=== PATIENT | female | born 1945 | race Two or more races ===

== ENCOUNTER 2016-07-28 14:23 | Emergency (ER) | payer MEDICARE, OTHER ==
[~2016-07-28] VITALS: Ht 167.6 cm; Wt 63.5 kg
[~2016-07-28 14:23] MED LIST: ACETAMINOP500 MG/51 ORAL; ALEVE220 M2 PO; AMBIEN5 MG ORAL; AMOXIL250 MG PO; B COMPLEX1 EACH ORAL; CATAPRES0.1 MG ORAL; CELEXA20 MG PO; CEPHALEXIN500 MG ORAL; CIPROFLOXACIN500 M2 ORAL; CITALOPRAM HBR10 M1 ORAL; CLOBETASOL PROP50 G1 TP; CLONIDINE0.1 MG GT; COLACE100 MG ORAL; DEXILANT60 MG ORAL; DOCUSATE SODIU100 MG ORAL; ENALAPRIL MALE2.5 MG ORAL; EVISTA60 MG ORAL; FIBER1 GM PO; KENALOG 0.025%15 GM APPLIC; KENALOG 0.1% CR15 GM APPLIC; LIDEX15 GM TOPIC; MAGNESIUM250 M3 PO; METRONIDAZOLE500 MG ORAL; NASONEX17 GM NASAL; NEXIUM40 MG ORAL; NORCO 5-325 TA1 EACH ORAL; OYSTER SHELL C500 MG PO; PATANASE30.5 GM NS; PROTONIX40 MG ORAL; TACROLIMUS30 G1 TP; TYLENOL EXTRA500 MG ORAL; UNOBMED; VITAMIN C500 M1 ORAL; VITAMIN E400 UNI5 PO; ZOLPIDEM TARTRAT5 MG ORAL; ZYPREXA2.5 MG ORAL; ZYRTEC10 MG ORAL
[2016-07-28 14:49] VITALS: BP 125/79
[2016-07-28] MEDS ORDERED: AMOXICILLIN500 MG ORAL (15:45)
--- NOTE | 2016-07-28 16:01 | Emergency Room Report ---
History of Present Illness General Chief Complaint: General Complaint Source: Patient Present Illness HPI The patient is a 71 -year-old female with a history of tonsillectomy presenting for sore throat and dry cough which has been present for the past month. The patient states that she was treated with azithromycin which has not helped. The patient spoke with her primary care physician who told her to come to the emergency department for throat culture and treatment. The pain is described as a 5/10 burning sensation and worse with swallowing. Pt denies fever but has been using tylenol. Pt denies N, V, VELARDE, fatigue, ear pain, rash, recent travel, sick contacts, SOB, CP Allergies: Coded Allergies: EPINEPHRINE (Verified Allergy, Severe, 02/12/14) DIFFICULTY BREATHING PSEUDOEPHEDRINE (Verified Allergy, Severe, 02/12/14) FACIAL SWELLING Shrimp (Verified Allergy, Severe, 12/11/13) Facial edema FLUTICASONE (Verified Allergy, Intermediate, 02/12/14) BURNING SENSATION INSIDE NOSE CETIRIZINE (Unverified Allergy, Unknown, 01/27/15) vpmtting dizzines IBUPROFEN (Verified Allergy, Unknown, 12/11/13) ALENDRONATE SODIUM (Verified Adverse Reaction, Severe, 02/12/14) SEVERE VOMITING ENALAPRIL (Verified Adverse Reaction, Intermediate, ANGIOEDEMA, 12/12/13) PERIORBITAL ASPIRIN (Verified Adverse Reaction, Mild, 02/12/14) UPSET STOMACH,MILD VOMITING CLINDAMYCIN (Verified Adverse Reaction, Mild, 02/12/14) UPSET STOMACH DULOXETINE (Verified Adverse Reaction, Mild, 02/12/14) MILD VOMITING Uncoded Allergies: CORTISONE/STEROIDS (Allergy, Severe, 02/12/14) SKIN RASH MICROCRYSTALLINE PROCESS (Allergy, Severe, 02/12/14) SKIN RASH HYDROCODON (Adverse Reaction, Severe, 02/12/14) SEVERE CONSTIPATION Patient History Past Medical History: see triage record Pertinent Family History: none Reviewed Nursing Documentation: PMH: Agreed, PSxH: Agreed Nursing Documentation-PMH Past Medical History: No History, Except For Hx Cardiac Problems: Yes Hx Hypertension: Yes Hx Cancer: No Hx Gastrointestinal Problems: Yes Hx Neurological Problems: No Review of Systems All Other Systems: negative except mentioned in HPI Physical Exam Vital Signs Date Time Temp Pulse Resp B/P Pulse Ox O2 Delivery O2 Flow Rate FiO2 07/28/16 14:33 98.4 72 16 125/79 97 Room Air Sp02 EP Interpretation: reviewed, normal General Appearance: no apparent distress, alert, GCS 15, non-toxic Head: normocephalic, atraumatic Eyes: bilateral eye PERRL, bilateral eye normal inspection ENT: hearing grossly normal, normal pharynx, no angioedema, normal voice, TMs + canals normal, uvula midline, pharyngeal erythema Neck: full range of motion, supple, supple/symm/no masses Respiratory: chest non-tender, lungs clear, normal breath sounds, no wheezing, speaking full sentences Cardiovascular #1: regular rate, rhythm, no edema Cardiovascular #2: 2+ carotid (R), 2+ carotid (L), 2+ radial (R), 2+ radial (L) , 2+ dorsalis pedis (R), 2+ dorsalis pedis (L) Gastrointestinal: normal bowel sounds, non tender, soft, non-distended, no guarding, no rebound Rectal: deferred Genitourinary: normal inspection, no CVA tenderness Musculoskeletal: back normal, gait/station normal, normal range of motion, non- tender Neurologic: alert, oriented x3, responsive, motor strength/tone normal, sensory intact, speech normal Psychiatric: judgement/insight normal, memory normal, mood/affect normal, no suicidal/homicidal ideation Reflexes: 3+ bicep (R), 3+ bicep (L), 3+ tricep (R), 3+ tricep (L), 3+ knee (R) , 3+ knee (L) Skin: normal color, no rash, warm/dry, well hydrated Lymphatic: no adenopathy Medical Decision Making PA Attestation Dr. Cline is my supervising physician. Patient management was discussed with my supervising physician Diagnostic Impression: Primary Impression: Pharyngitis, acute ER Course The patient is a 71 -year-old female with a history of tonsillectomy presenting for sore throat and dry cough which has been present for the past month. Differential diagnosis include but not limited to pharyngitis, sinusitis, pneumonia, rhinitis PE: Afebrile. NAD. HEENT: + oropharyngeal erythema. Tonsils removed. Otherwise exam unremarkable. Throat culture taken. The pt will be started on amoxicillin and will FU with PMD. The treatment will be altered depending on throat culture results. ER precautions given Last Vital Signs Date Time Temp Pulse Resp B/P Pulse Ox O2 Delivery O2 Flow Rate FiO2 07/28/16 14:49 98.4 78 16 125/79 97 Room Air Status: improved Disposition: HOME, SELF-CARE Condition: Improved Scripts Amoxicillin* (AMOXIL*) 500 Mg Capsule 500 MG ORAL Q12HR, #20 CAP Prov: HARIKA JONSE 07/28/16 Patient Instructions: Sore Throat Additional Instructions: I discussed my findings with the patient. All questions and concerns have been answered. Treatment and medication compliance have been addressed. I advised the patient that they need to follow up with PMD in 3-5 days. Return to ED if pain remains or worsens, cough worsens or remains, you notice blood in your sputum, you notice wheezing, you experience a fever, or if needed for any reason. Patient verbalized understanding of discharge instructions. HARIKA JONES Jul 28, 2016 16:00
[2016-07-28 16:04] VITALS: BP 125/79
[2016-08-23] MEDS ORDERED: MAPAP650 MG/20. PO (16:14)
[2016-08-23] MEDS ORDERED: LOSARTAN POTASS50 MG ORAL (16:14)
[2016-08-23] MEDS ORDERED: AIRBORNE EFFER1 EACH PO (16:14)
[2016-08-23] MEDS ORDERED: [UNRECOGNIZED DRUG - OTHER] (16:14)
[2016-08-23] MEDS ORDERED: [UNRECOGNIZED DRUG - OTHER] (16:14)
[2016-08-23] MEDS ORDERED: AZELASTINE137 MCG/0. NS (16:14)
[2016-08-23] MEDS ORDERED: VITAMIN D250000 UNI1 ORAL (16:14)
[2016-08-23] MEDS ORDERED: PETROLEUM JELL368 GM TP (16:14)
[2016-08-23] MEDS ORDERED: AMLODIPINE BESYL5 MG ORAL (16:14)
[2016-08-23] MEDS ORDERED: ZOLPIDEM TARTRAT5 MG ORAL (16:14)
== END 2016-07-28 16:04 | disposition home or self-care (01) ==
LOC: EMR 15:05
DX: J02.9 Acute pharyngitis, unspecified (principal); I10 Essential (primary) hypertension; Z88.6 Allergy status to analgesic agent; Z88.1 Allergy status to other antibiotic agents; Z88.8 Allergy status to other drugs, medicaments and biological substances; Z91.013 Allergy to seafood
CPT/HCPCS: 99283

== ENCOUNTER → 2016-08-23 | Outpatient (CLI) | payer MEDICARE, OTHER ==
[~2016-08-23] MED LIST changes: +AIRBORNE EFFER1 EACH PO; +AMLODIPINE BESYL5 MG ORAL; +AMOXICILLIN500 MG ORAL; +AZELASTINE137 MCG/0. NS; +LOSARTAN POTASS50 MG ORAL; +MAPAP650 MG/20. PO; +PETROLEUM JELL368 GM TP; +VITAMIN D250000 UNI1 ORAL; +[UNRECOGNIZED DRUG - OTHER]; +[UNRECOGNIZED DRUG - OTHER]
[2016-08-23 14:38] VITALS: BP 116/61
--- NOTE | 2016-08-23 14:57 | GI Progress Note ---
Assessment/Plan Problems: (1) Encounter for diagnostic endoscopy ICD Codes: Z01.818 - Encounter for other preprocedural examination SNOMED: 988486583, 260951255 (2) Barretts esophagus ICD Codes: K22.70 - Barretts esophagus SNOMED: 707194701 (3) Hiatal hernia ICD Codes: K44.9 - Hiatal hernia SNOMED: 56528671 (4) Gastritis ICD Codes: K29.70 - Gastritis SNOMED: 5578170 (5) Abdominal pain ICD Codes: R10.9 - Unspecified abdominal pain SNOMED: 79968394 Status: stable Status Narrative Discussed with Dr. Rosario. Assessment/Plan EGD scheduled for 09/26/16 to evaluate Anand's - NPO @ [place] prior day procedure acknowledged by patient possible candidate for ablation dc nexium 40mg Subjective Gastrointestinal/Abdominal: Reports: no symptoms Subjective denies use of any blood thinners no longer takes nexium 40 Objective Last 24 Hour Vital Signs Date Time Temp Pulse Resp B/P Pulse Ox O2 Delivery O2 Flow Rate FiO2 08/23/16 14:38 98.1 80 16 116/61 97 General Appearance: no apparent distress, alert Cardiovascular: normal rate Respiratory/Chest: normal breath sounds, no respiratory distress Abdominal Exam: normal bowel sounds, non tender, soft Extremities: normal range of motion Objective Endoscopy Procedure Note Indication for Procedure: barretts esophagus Procedures Performed: EGD Operative Findings/Diagnosis: gastritis DONOVAN ROSARIO - Jan 28, 2015 11:02 Tawana Kaiser N.P. Aug 23, 2016 14:57
== END | disposition home or self-care (01) ==
LOC: PAN 14:27
DX: Z01.818 Encounter for other preprocedural examination (principal); K22.70 Barrett's esophagus without dysplasia; K44.9 Diaphragmatic hernia without obstruction or gangrene; K29.70 Gastritis, unspecified, without bleeding; R10.9 Unspecified abdominal pain
CPT/HCPCS: 99211

== ENCOUNTER 2017-04-15 13:45 | Outpatient (CLI) | payer MEDICARE, OTHER ==
[2017-04-15] MEDS ORDERED: CITRACAL + D E1 EACH PO (15:10)
[2017-04-15] MEDS ORDERED: CELEXA20 MG ORAL (15:10)
[2017-04-15] MEDS ORDERED: VENTOLIN HFA18 GM INH (15:10)
[2017-04-15] MEDS ORDERED: PROAIR HFA8.5 GM INH (15:10)
[2017-04-15] MEDS ORDERED: PSEUDOEPHEDRINE30 MG PO (15:10)
[2017-04-15] MEDS ORDERED: FLUTICASONE PRO16 G1 NASAL (15:10)
[2017-04-15] MEDS ORDERED: CULTURELLE1 EACH ORAL (15:10)
[2017-04-15] MEDS ORDERED: ALLEGRA ALLERG180 M1 PO (15:10)
[2017-04-15] MEDS ORDERED: MUCINEX COLD-F177 M1 PO (15:10)
[2017-04-15 15:27] VITALS: BP 146/74
[2017-04-15 15:56] LABS: BASOPHILS % (AUTO) 0.8 % (0.0-2.0); EOSINOPHILS % (AUTO) 1.4 % (0.0-3.0); LYMPHOCYTES % (AUTO) 19.4 % (20.0-45.0); MEAN CORPUSCULAR HEMOGLOBIN 32.1 PG (27.0-31.0); MEAN CORPUSCULAR HGB CONC 32.8 G/DL (32.0-36.0); MEAN CORPUSCULAR VOLUME 98 FL (80-99); MEAN PLATELET VOLUME 6.7 FL (6.5-10.1); MONOCYTES % (AUTO) 8.3 % (1.0-10.0); NEUTROPHILS % (AUTO) 70.1 % (45.0-75.0); PLATELET COUNT 282 K/UL (150-450); RED BLOOD COUNT 4.17 M/UL (4.20-5.40); RED CELL DISTRIBUTION WIDTH 12.2 % (11.6-14.8); WHITE BLOOD COUNT 7.5 K/UL (4.8-10.8)
[2017-04-15 15:58] LABS: APPEARANCE,URINE CLEAR; KETONES,URINE 1+ (NEGATIVE); LEUKOCYTE ESTERASE ,URINE 1+ (NEGATIVE); NITRITE,URINE NEGATIVE (NEGATIVE); PH,URINE 5 (4.5-8.0); PROTEIN,URINE NEGATIVE (NEGATIVE); UROBILINOGEN,URINE NORMAL MG/DL (0.0-1.0)
[2017-04-15 16:07] LABS: BACTERIA,URINE FEW /HPF; SQUAMOUS EPITHELIAL CELL,UR FEW /LPF (NONE/OCC)
--- NOTE | 2017-04-15 16:11 | GI Progress Note ---
Assessment/Plan Problems: (1) Constipation ICD Codes: K59.00 - Constipation, unspecified SNOMED: 47922807 (2) Diarrhea ICD Codes: R19.7 - Diarrhea, unspecified SNOMED: 48067939 (3) Barretts esophagus ICD Codes: K22.70 - Barretts esophagus SNOMED: 939349487 (4) Abdominal pain ICD Codes: R10.9 - Unspecified abdominal pain SNOMED: 94009324 (5) Hiatal hernia ICD Codes: K44.9 - Hiatal hernia SNOMED: 26597439 (6) Smoker ICD Codes: F17.200 - Smoker SNOMED: 37428928 Status: stable Status Narrative Seen with Dr. Rosario. Assessment/Plan labs drawn today >> CBC, CMP, Mg, Phos, HgA1C UA obtained cdiff, stool culture to be returned by patient Imodium prn RTC after studies Subjective Subjective abdominal pain constipation vs diarrhea last 2 weeks >> tokk Imodium, pepto Bismol which caused her to become constipated abdominal bloating smokes on and off Has Anand here for follow up Objective Last 24 Hour Vital Signs Date Time Temp Pulse Resp B/P (MAP) Pulse Ox O2 Delivery O2 Flow Rate FiO2 04/15/17 15:27 98.0 66 16 146/74 Laboratory Tests Test 04/15/17 14:45 White Blood Count 7.5 K/UL (4.8-10.8) Red Blood Count 4.17 M/UL (4.20-5.40) L Hemoglobin 13.4 G/DL (12.0-16.0) Hematocrit 40.8 % (37.0-47.0) Mean Corpuscular Volume 98 FL (80-99) Mean Corpuscular Hemoglobin 32.1 PG (27.0-31.0) H Mean Corpuscular Hemoglobin Concent 32.8 G/DL (32.0-36.0) Red Cell Distribution Width 12.2 % (11.6-14.8) Platelet Count 282 K/UL (150-450) Mean Platelet Volume 6.7 FL (6.5-10.1) Neutrophils (%) (Auto) 70.1 % (45.0-75.0) Lymphocytes (%) (Auto) 19.4 % (20.0-45.0) L Monocytes (%) (Auto) 8.3 % (1.0-10.0) Eosinophils (%) (Auto) 1.4 % (0.0-3.0) Basophils (%) (Auto) 0.8 % (0.0-2.0) Urine Color Yellow Urine Appearance Clear Urine pH 5 (4.5-8.0) Urine Specific [place] 1.015 (1.005-1.035) Urine Protein Negative (NEGATIVE) Urine Glucose (UA) Negative (NEGATIVE) Urine Ketones 1+ (NEGATIVE) H Urine Occult Blood 2+ (NEGATIVE) H Urine Nitrite Negative (NEGATIVE) Urine Bilirubin Negative (NEGATIVE) Urine Urobilinogen Normal MG/DL (0.0-1.0) Urine Leukocyte Esterase 1+ (NEGATIVE) H Urine RBC 5-10 /HPF (0 - 2) H Urine WBC 2-4 /HPF (0 - 2) Urine Squamous Epithelial Cells Few /LPF (NONE/OCC) Urine Bacteria Few /HPF (NONE) Sodium Level Pending Potassium Level Pending Chloride Level Pending Carbon Dioxide Level Pending Blood Urea Nitrogen Pending Creatinine Pending Estimat Glomerular Filtration Rate Pending Glucose Level Pending Hemoglobin A1c Pending Calcium Level Pending Phosphorus Level Pending Magnesium Level Pending Total Bilirubin Pending Aspartate Amino Transf (AST/SGOT) Pending Alanine Aminotransferase (ALT/SGPT) Pending Alkaline Phosphatase Pending Total Protein Pending Albumin Pending Globulin Pending General Appearance: no apparent distress, alert Cardiovascular: normal rate Respiratory/Chest: normal breath sounds, no respiratory distress Abdominal Exam: normal bowel sounds, non tender, soft Genitourinary/Rectal: normal rectal exam Extremities: normal range of motion, non-tender, normal inspection Tawana Kaiser N.P. Apr 15, 2017 16:11
[2017-04-15 16:47] LABS: ALANINE AMINOTRANSFERASE 56 U/L (3-33); ALBUMIN/GLOBULIN RATIO 1.8 (1.0-2.7); ANION GAP 14 (5-15); ASPARTATE AMINO TRANSFERASE 58 U/L (5-40); CALCIUM 8.8 mg/dL (8.6-10.2); CARBON DIOXIDE 25 mEQ/L (20-30); CHLORIDE 103 mEQ/L (98-107); CREATININE 0.7 mg/dL (0.5-0.9); HEMOGLOBIN A1C 5.5 % (< 6.0); HEMOLYSIS 6; MAGNESIUM 2.1 mg/dL (1.7-2.5); PHOSPHORUS 3.1 mg/dL (2.5-4.8); POTASSIUM 3.5 mEQ/L (3.4-4.9); SODIUM 142 mEQ/L (135-145)
[2017-04-15 17:00] LABS: BILIRUBIN,DIRECT 0.2 mg/dL (0.1-0.3)
[2017-04-16] MEDS ORDERED: ACETAMINOPHEN325 M1 ORAL (23:22)
== END 2017-04-15 15:00 | disposition home or self-care (01) ==
LOC: PAN 13:45
DX: K59.00 Constipation, unspecified (principal); R19.7 Diarrhea, unspecified; K22.70 Barrett's esophagus without dysplasia; R10.9 Unspecified abdominal pain; K44.9 Diaphragmatic hernia without obstruction or gangrene; F17.200 Nicotine dependence, unspecified, uncomplicated
CPT/HCPCS: 36415; 80053; 81003; 82248; 83036; 83735; 84100; 85025; G0463; 99211

== ENCOUNTER 2017-04-16 13:47 | Outpatient (CLI) | payer MEDICARE, OTHER ==
[~2017-04-16 13:47] MED LIST changes: +ALLEGRA ALLERG180 M1 PO; +CELEXA20 MG ORAL; +CITRACAL + D E1 EACH PO; +CULTURELLE1 EACH ORAL; +FLUTICASONE PRO16 G1 NASAL; +MUCINEX COLD-F177 M1 PO; +PROAIR HFA8.5 GM INH; +PSEUDOEPHEDRINE30 MG PO; +VENTOLIN HFA18 GM INH
[2017-04-16] MEDS ORDERED: ACETAMINOPHEN325 M1 ORAL (23:22)
== END 2017-04-16 14:00 | disposition home or self-care (01) ==
LOC: PAN 13:47
DX: R10.9 Unspecified abdominal pain (principal); R19.7 Diarrhea, unspecified
CPT/HCPCS: 87045; 87324

== ENCOUNTER 2017-04-16 20:32 | Emergency (ER) | payer MEDICARE, OTHER ==
[~2017-04-16] VITALS: Ht 167.6 cm; Wt 71.2 kg
--- NOTE | 2017-04-16 21:54 | Emergency Room Report ---
History of Present Illness General Chief Complaint: Abdominal Pain Source: Patient Present Illness HPI Is a 72-year-old female with a history of gallbladder disease. She had a cholecystectomy 2 years ago. She is uncertain complaint abdominal pain. Is on and off for a month. Worse the last couple days. She saw Dr. Renee today and he recommended that the ER. Pain is left upper quadrant.) Her back. No rash. Pain is 8/10. Worse with palpation. No nausea no vomiting. Has diarrhea. No fever. No urinary complaint. Allergies: Coded Allergies: EPINEPHRINE (Verified Allergy, Severe, 02/12/14) DIFFICULTY BREATHING Shrimp (Verified Allergy, Severe, 12/11/13) Facial edema FLUTICASONE (Verified Allergy, Intermediate, 02/12/14) BURNING SENSATION INSIDE NOSE CETIRIZINE (Unverified Allergy, Unknown, 01/27/15) vpmtting dizzines IBUPROFEN (Verified Allergy, Unknown, 12/11/13) ALENDRONATE SODIUM (Verified Adverse Reaction, Severe, 02/12/14) SEVERE VOMITING ENALAPRIL (Verified Adverse Reaction, Intermediate, ANGIOEDEMA, 12/12/13) PERIORBITAL ASPIRIN (Verified Adverse Reaction, Mild, 02/12/14) UPSET STOMACH,MILD VOMITING CLINDAMYCIN (Verified Adverse Reaction, Mild, 02/12/14) UPSET STOMACH DULOXETINE (Verified Adverse Reaction, Mild, 02/12/14) MILD VOMITING Uncoded Allergies: CORTISONE/STEROIDS (Allergy, Severe, 02/12/14) SKIN RASH MICROCRYSTALLINE PROCESS (Allergy, Severe, 02/12/14) SKIN RASH HYDROCODON (Adverse Reaction, Severe, 02/12/14) SEVERE CONSTIPATION Patient History Past Medical History: see triage record, old chart reviewed Past Surgical History: eliecer Pertinent Family History: none Social History: Denies: smoking Now: No Immunizations: other Reviewed Nursing Documentation: PMH: Agreed, PSxH: Agreed Nursing Documentation-PMH Hx Cardiac Problems: No Hx Hypertension: Yes Hx Cancer: No Hx Gastrointestinal Problems: Yes Hx Neurological Problems: No Review of Systems Eye: Denies: eye pain, blurred vision ENT: Denies: ear pain, nose congestion, throat swelling Respiratory: Denies: cough, shortness of breath Cardiovascular: Denies: chest pain, palpitations Gastrointestinal: Reports: abdominal pain, Denies: diarrhea, nausea, vomiting Musculoskeletal: Denies: back pain, joint pain Skin: Denies: rash Neurological: Denies: headache, numbness Endocrine: Denies: increased thirst, increased urine Hematologic/Lymphatic: Denies: easy bruising All Other Systems: negative except mentioned in HPI Physical Exam Vital Signs Date Time Temp Pulse Resp B/P (MAP) Pulse Ox O2 Delivery O2 Flow Rate FiO2 04/16/17 20:57 98.1 68 20 147/75 97 Room Air vitals normal Sp02 EP Interpretation: reviewed, normal General Appearance: well appearing, no apparent distress, alert Head: normocephalic, atraumatic Eyes: bilateral eye PERRL, bilateral eye EOMI ENT: hearing grossly normal, normal pharynx Neck: full range of motion, supple, no meningismus Respiratory: chest non-tender, lungs clear, normal breath sounds Cardiovascular #1: regular rate, rhythm, no murmur Gastrointestinal: normal bowel sounds, no mass, no organomegaly, no bruit, non- distended, tenderness - Left upper quadrant Musculoskeletal: back normal, gait/station normal, normal range of motion Psychiatric: mood/affect normal Skin: warm/dry Medical Decision Making Diagnostic Impression: Primary Impression: Abdominal pain of unknown etiology Additional Impression: Enteritis ER Course Present with abdominal pain and CT scan significant for gastroenteritis. No evidence of obstruction. No evidence of surgical abdomen. We'll discharge home. Lab Results Impression labs unremarkable CT/MRI/US Diagnostic Results CT/MRI/US Diagnostic Results : Imaging Test Ordered: CT abdomen and pelvis Impression read by radiologist. Fluid in nondistended loops of small bowel Last Vital Signs Date Time Temp Pulse Resp B/P (MAP) Pulse Ox O2 Delivery O2 Flow Rate FiO2 04/16/17 20:57 98.1 68 20 147/75 97 Room Air Status: improved Disposition: HOME, SELF-CARE Condition: Stable Scripts Acetaminophen* (ACETAMINOPHEN 325MG TABLET*) 325 Mg Tablet 325 MG ORAL Q6H Y for For Pain, #30 TAB Prov: ROSELINE FERRELL M.D. 04/16/17 Patient Instructions: Viral Gastroenteritis, Adult Additional Instructions: Followup with your DrNavi in 2-3 days. Return worse. ROSELINE FERRELL M.D. Apr 16, 2017 21:54
[2017-04-16 22:54] LABS: APPEARANCE,URINE CLEAR; KETONES,URINE NEGATIVE (NEGATIVE); LEUKOCYTE ESTERASE ,URINE 1+ (NEGATIVE); NITRITE,URINE NEGATIVE (NEGATIVE); PH,URINE 6.5 (4.5-8.0); PROTEIN,URINE NEGATIVE (NEGATIVE); UROBILINOGEN,URINE NORMAL MG/DL (0.0-1.0)
[2017-04-16 22:55] LABS: EOSINOPHILS % (AUTO) 2.3 % (0.0-3.0); LYMPHOCYTES % (AUTO) 32.7 % (20.0-45.0); MEAN CORPUSCULAR HEMOGLOBIN 34.2 PG (27.0-31.0); MEAN CORPUSCULAR HGB CONC 34.9 G/DL (32.0-36.0); MEAN CORPUSCULAR VOLUME 98 FL (80-99); MEAN PLATELET VOLUME 7.1 FL (6.5-10.1); MONOCYTES % (AUTO) 12.3 % (1.0-10.0); NEUTROPHILS % (AUTO) 51.6 % (45.0-75.0); PLATELET COUNT 269 K/UL (150-450); RED BLOOD COUNT 3.78 M/UL (4.20-5.40); RED CELL DISTRIBUTION WIDTH 12.6 % (11.6-14.8); WHITE BLOOD COUNT 7.1 K/UL (4.8-10.8)
[2017-04-16 22:58] LABS: RBC,URINE 0-2 /HPF (0 - 2); SQUAMOUS EPITHELIAL CELL,UR OCCASIONAL /LPF (NONE/OCC); WBC,URINE 0-2 /HPF (0 - 2)
[2017-04-16 23:13] LABS: ALANINE AMINOTRANSFERASE 34 U/L (3-33); ALBUMIN/GLOBULIN RATIO 1.6 (1.0-2.7); ANION GAP 17 (5-15); ASPARTATE AMINO TRANSFERASE 25 U/L (5-40); CALCIUM 8.8 mg/dL (8.6-10.2); CARBON DIOXIDE 24 mEQ/L (20-30); CHLORIDE 103 mEQ/L (98-107); CREATININE 0.8 mg/dL (0.5-0.9); HEMOLYSIS 2; LIPASE 22 U/L (< 60); POTASSIUM 2.9 mEQ/L (3.4-4.9); SODIUM 144 mEQ/L (135-145)
[2017-04-16] MEDS ORDERED: ACETAMINOPHEN325 M1 ORAL (23:22)
[2017-04-16 23:28] VITALS: BP 147/75
[2017-04-16 23:28] LABS: BILIRUBIN,DIRECT 0.2 mg/dL (0.1-0.3)
--- NOTE | 2017-04-17 09:46 | Diagnostic Imaging Report ---
Indication: Abdominal pain x2 days Technique: Spiral acquisitions obtained through the abdomen and pelvis. No oral contrast utilized, per emergency room physician request No IV contrast utilized, per referring physician request.. Multiplanar reconstructions were generated. Total dose length product 759 mGycm. CTDIvol(s) 16 mGy. Dose reduction achieved using automated exposure control Comparison: 10/04/2015 Findings: The appendix is normal in caliber, contains multiple appendicoliths. There is colonic diverticulosis. No evidence of diverticulitis. No small bowel distention. There is a moderate-sized sliding-type hiatal hernia again demonstrated. Distal esophagus, stomach, duodenum are otherwise unremarkable. No free or loculated intraperitoneal air or fluid is evident. There is a small left inguinal hernia which contains only fat. Lack of IV contrast limits assessment of solid organs. The liver contains a cyst in segment 4 a. There are also multiple hepatic subcentimeter low-attenuation lesions which are too small to characterize. There are cholecystectomy clips. Mildly ectatic extrahepatic bile ducts are noted, no definite downstream obstructive lesion. The pancreas, spleen, left adrenal are unremarkable. Again demonstrated is a right adrenal mass which demonstrates fat attenuation. This measures 2.4 cm in diameter. Some scarring is seen in the upper pole cortex of the right kidney. The left kidney is unremarkable. 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 No retroperitoneal or mesenteric mass or adenopathy. No pelvic mass or adenopathy. Uterus and adnexal structures are unremarkable. The included lung bases demonstrates scarring or atelectasis bilaterally. The heart is borderline enlarged. Findings are similar to the previous study Impression: No definite acute abnormality Moderate size sliding-type hiatal hernia, also previously reported Prior cholecystectomy. Mild ectasia of the intrahepatic bile ducts, most likely related to age and postcholecystectomy state. Correlate with liver function tests Stable 2.4 cm right adrenal adenoma Right lobe liver cyst. Subcentimeter low-attenuation liver lesions, too small to characterize, most likely benign simple cysts or bile hamartomas. No further followup necessary Incidental findings as noted, including borderline cardiomegaly, basilar pulmonary parenchymal atelectasis or scarring, duplicated inferior, small fat-containing left inguinal hernia The CT scanner at [facility] is accredited by the [employer] and the scans are performed using protocols designed to limit radiation exposure to as low as reasonably achievable to attain images of sufficient resolution adequate for diagnostic evaluation.
== END 2017-04-16 23:30 | disposition home or self-care (01) ==
LOC: EMR 21:25
DX: K52.9 Noninfective gastroenteritis and colitis, unspecified (principal); I10 Essential (primary) hypertension; Z88.8 Allergy status to other drugs, medicaments and biological substances; Z88.6 Allergy status to analgesic agent; Z91.013 Allergy to seafood
CPT/HCPCS: 36415; 74176; 80053; 81003; 82248; 83690; 85025; 87086; 99284

== ENCOUNTER 2017-05-16 14:59 | Outpatient (CLI) | payer MEDICARE, OTHER ==
[~2017-05-16 14:59] MED LIST changes: +ACETAMINOPHEN325 M1 ORAL
[2017-05-16 15:00] VITALS: BP 115/57
[2017-05-16] MEDS ORDERED: OMEPRAZOLE40 M1 ORAL (16:10)
[2017-05-16] MEDS ORDERED: BISACODYL5 MG ORAL (16:10)
--- NOTE | 2017-05-16 16:10 | GI Progress Note ---
Assessment/Plan Problems: (1) Barretts esophagus ICD Codes: K22.70 - Barretts esophagus SNOMED: 138808694 (2) Abdominal pain ICD Codes: R10.9 - Unspecified abdominal pain SNOMED: 77158282 (3) Constipation ICD Codes: K59.00 - Constipation, unspecified SNOMED: 52073492 (4) Gastritis ICD Codes: K29.70 - Gastritis SNOMED: 1161118 (5) Diarrhea ICD Codes: R19.7 - Diarrhea, unspecified SNOMED: 20084026 Status: stable Status Narrative Seen with Dr. Rosario. Assessment/Plan Rx Acyclovir Rx Linzess Rx [place] RTC x 1 week Subjective Subjective GERD Constipation Diarrhea Bloating Objective T 98.5 BP 115/57 P 60 General Appearance: WD/WN, no apparent distress, alert Cardiovascular: normal rate Respiratory/Chest: normal breath sounds, no respiratory distress Abdominal Exam: normal bowel sounds, non tender, soft Extremities: normal range of motion, non-tender Tawana Kaiser N.P. May 16, 2017 16:10
== END 2017-05-16 15:38 | disposition home or self-care (01) ==
LOC: PAN 14:59
DX: R10.9 Unspecified abdominal pain (principal); K22.70 Barrett's esophagus without dysplasia; K59.00 Constipation, unspecified; K29.70 Gastritis, unspecified, without bleeding; R19.7 Diarrhea, unspecified; K21.9 Gastro-esophageal reflux disease without esophagitis
CPT/HCPCS: 99211

== ENCOUNTER 2017-05-23 14:24 | Outpatient (CLI) | payer MEDICARE, OTHER ==
[~2017-05-23 14:24] MED LIST changes: +BISACODYL5 MG ORAL; +OMEPRAZOLE40 M1 ORAL
--- NOTE | 2017-05-23 16:20 | GI Progress Note ---
Assessment/Plan Problems: (1) Abdominal pain ICD Codes: R10.9 - Unspecified abdominal pain SNOMED: 12056063 (2) Constipation ICD Codes: K59.00 - Constipation, unspecified SNOMED: 91265954 (3) Gastritis ICD Codes: K29.70 - Gastritis SNOMED: 9954637 Status: stable Status Narrative Seen with Dr. Rosario. Assessment/Plan medical reconciliation education dc dulcolax prn take linzess and acyclovir colace prn norco prn RTC prn Subjective Subjective patient had severe pain, was about to go to ED >> pain currently resolved c/o of food malabsorption, brought in stool specimen did not take the linzess or acyclovir that was prescribed Objective General Appearance: WD/WN, no apparent distress, alert Cardiovascular: normal rate Respiratory/Chest: normal breath sounds, no respiratory distress Abdominal Exam: normal bowel sounds, non tender, soft Extremities: normal range of motion, non-tender Tawana Kaiser N.P. May 23, 2017 16:20
== END 2017-05-23 15:15 | disposition home or self-care (01) ==
LOC: PAN 14:24
DX: R10.9 Unspecified abdominal pain (principal); K59.00 Constipation, unspecified; K29.70 Gastritis, unspecified, without bleeding
CPT/HCPCS: 99211

== ENCOUNTER 2017-07-15 15:10 | Emergency (ER) | payer MEDICARE, OTHER ==
[~2017-07-15] VITALS: Ht 167.6 cm; Wt 65.8 kg
[2017-07-15 15:41] VITALS: BP 148/73
--- NOTE | 2017-07-15 16:23 | Emergency Room Report ---
History of Present Illness General Chief Complaint: Allergic Reaction Source: Patient Present Illness HPI 72 YO Female presents to the ED c/o itching and swelling of bilateral eyes x 2 days progressive. Patient reports mild sore throat times one day. Patient denies fevers, chills, swelling of the lips or time, wheezing or stridor. Denies pain. She reports multiple allergies and takes multiple medications. Patient denies eye pain she denies blurry vision she denies discharge in the eye. She has been using [id number] Visine drops, and allergy drops with only mild relief. Patient states itchy eyes and swollen lids are her most prominent symptom. reports use of corrective lenses, denies contact use. Denies eye pain. Denies lesions/rashes elsewhere on the body. Pt. also reports continued abdominal discomfort. reports she has been evaluated for her abdominal symptoms and has medications for them. Denies new medications or body washes or creams. Denies swelling of the lips, tongue , throat or airway. Denies wheezing, or shortness of breath. Denies recent travel, recent illness or ill contacts. denies blisters, oral lesions, or sloughing of the skin. Allergies: Coded Allergies: EPINEPHRINE (Verified Allergy, Severe, 02/12/14) DIFFICULTY BREATHING Shrimp (Verified Allergy, Severe, 12/11/13) Facial edema FLUTICASONE (Verified Allergy, Intermediate, 02/12/14) BURNING SENSATION INSIDE NOSE CETIRIZINE (Unverified Allergy, Unknown, 01/27/15) vpmtting dizzines IBUPROFEN (Verified Allergy, Unknown, 12/11/13) ALENDRONATE SODIUM (Verified Adverse Reaction, Severe, 02/12/14) SEVERE VOMITING ENALAPRIL (Verified Adverse Reaction, Intermediate, ANGIOEDEMA, 12/12/13) PERIORBITAL ASPIRIN (Verified Adverse Reaction, Mild, 02/12/14) UPSET STOMACH,MILD VOMITING CLINDAMYCIN (Verified Adverse Reaction, Mild, 02/12/14) UPSET STOMACH DULOXETINE (Verified Adverse Reaction, Mild, 02/12/14) MILD VOMITING Uncoded Allergies: CORTISONE/STEROIDS (Allergy, Severe, 02/12/14) SKIN RASH MICROCRYSTALLINE PROCESS (Allergy, Severe, 02/12/14) SKIN RASH HYDROCODON (Adverse Reaction, Severe, 02/12/14) SEVERE CONSTIPATION Patient History Past Medical History: see triage record, HTN, psych hx Past Surgical History: none Pertinent Family History: none Last Menstrual Period: Post Now: No Reviewed Nursing Documentation: PMH: Agreed, PSxH: Agreed Nursing Documentation-PMH Hx Cardiac Problems: No Hx Hypertension: Yes Hx Cancer: No Hx Neurological Problems: No Review of Systems All Other Systems: negative except mentioned in HPI Physical Exam Vital Signs Date Time Temp Pulse Resp B/P (MAP) Pulse Ox O2 Delivery O2 Flow Rate FiO2 07/15/17 15:14 98.1 82 20 148/73 97 Room Air Sp02 EP Interpretation: reviewed, normal General Appearance: no apparent distress, alert, GCS 15, non-toxic Head: normocephalic, atraumatic Eyes: bilateral eye normal inspection, bilateral eye PERRL, bilateral eye lid inflammation, bilateral eye other - swelling to upper and lower lids bilaterally with erythema, no increased temperature to palpation. ENT: hearing grossly normal, normal pharynx, no angioedema, normal voice, other - no stridor Neck: full range of motion, supple/symm/no masses Respiratory: chest non-tender, lungs clear, normal breath sounds, speaking full sentences Cardiovascular #1: regular rate, rhythm, normal capillary refill Gastrointestinal: non tender, soft Rectal: deferred Musculoskeletal: back normal, gait/station normal, normal range of motion Neurologic: alert, oriented x3, responsive, motor strength/tone normal, sensory intact, normal gait, speech normal Skin: normal color, warm/dry, well hydrated, rash - blanching erythematous plaque bilaterally to the eyes, with lid swelling. Lymphatic: no adenopathy Medical Decision Making PA Attestation Dr. Cline is my supervising Physician whom patient management has been discussed with. Diagnostic Impression: Primary Impression: Allergic reaction Qualified Codes: T78.40XA - Allergy, unspecified, initial encounter Additional Impression: Allergic conjunctivitis Qualified Codes: H10.13 - Acute atopic conjunctivitis, bilateral ER Course 72 YO Female presents to the ED c/o itching and swelling of bilateral eyes x 2 days progressive. Patient reports mild sore throat times one day. Patient denies fevers, chills, swelling of the lips or time, wheezing or stridor. Denies pain. She reports multiple allergies and takes multiple medications. Patient denies eye pain she denies blurry vision she denies discharge in the eye. She has been using [id number] Visine drops, and allergy drops with only mild relief. Patient states itchy eyes and swollen lids are her most prominent symptom. reports use of corrective lenses, denies contact use. Denies eye pain. Denies lesions/rashes elsewhere on the body. Pt. also reports continued abdominal discomfort. reports she has been evaluated for her abdominal symptoms and has medications for them. Denies new medications or body washes or creams. Denies swelling of the lips, tongue , throat or airway. Denies wheezing, or shortness of breath. Denies recent travel, recent illness or ill contacts. denies blisters, oral lesions, or sloughing of the skin. Ddx considered but are not limited to cellulitis, allergic reaction, angio edema , abscess Vital signs: are WNL, pt. is afebrile H&PE are most consistent with allergic reaction and allergic conjunctivitis. grossly normal abdominal exam. ORDERS: none required at this time, the diagnosis is clinical ED INTERVENTIONS: -d/w pt. that I highly recommend evaluation with case technician specialist. d/w pt. that at this time reaction appears to be localized to the eye area, and that I do not suspect impending airway compromise or need for immediate ED allergic reaction/ anaphylactic intervention. I do not suspect an emergent condition at this time. With current presentation, pt. is stable for close outpatient follow up and conservative treatment. D/w pt. to return promptly to ED with worsening or new symptoms.- Pt. verbalizes' understanding and agreement with proposed treatment plan. DISCHARGE: At this time pt. is stable for d/c to home. Will provide printed patient care instructions, and any necessary prescriptions. Care plan and follow up instructions have been discussed with the patient prior to discharge. Last Vital Signs Date Time Temp Pulse Resp B/P (MAP) Pulse Ox O2 Delivery O2 Flow Rate FiO2 07/15/17 15:41 98.1 84 20 148/73 97 Room Air Disposition: HOME, SELF-CARE Condition: Stable Scripts Olopatadine HCl (Olopatadine HCl) 5 Ml Drops 1 DROP OP DAILY, #5 ML Prov: Rubi Draper P.A. 07/15/17 Fexofenadine/Pseudoephedrine (BIANCA-D 12 HOUR TABLET) 1 Each Tab.er.12h 1 EACH PO Q12HR, #28 TAB Prov: Rubi Draper 07/15/17 Patient Instructions: Allergic Conjunctivitis, Allergies Additional Instructions: Take medications as directed. Follow up with a Primary Care Provider in 3 days, MEDIA SERVICES SPECIALIST EVALUATION NEEDED. Return sooner to ED if new symptoms occur, or current symptoms become worse. - Please note that this Emergency Department Report was dictated using [employer] potato cutter technology software, occasionally this can lead to erroneous entry secondary to interpretation by the dictation equipment. Rubi Draper Jul 15, 2017 16:23
[2017-07-15] MEDS ORDERED: OLOPATADINE HCL5 ML OP (16:25)
[2017-07-15] MEDS ORDERED: ALLEGRA-D 12 H1 EACH PO (16:25)
[2017-07-15 16:40] VITALS: BP 148/73
== END 2017-07-15 16:50 | disposition home or self-care (01) ==
LOC: EMR 16:38
DX: T78.40XA Allergy, unspecified, initial encounter (principal); X58.XXXA Exposure to other specified factors, initial encounter; H10.13 Acute atopic conjunctivitis, bilateral; L29.9 Pruritus, unspecified; I10 Essential (primary) hypertension; Z88.6 Allergy status to analgesic agent; Z88.8 Allergy status to other drugs, medicaments and biological substances; Z91.013 Allergy to seafood
CPT/HCPCS: 99283